=== PATIENT | male | born 1995 | race Caucasian/White ===

== ENCOUNTER 2018-12-21 12:59 | Inpatient (IN) | payer BC, OTHER ==
[~2018-12-21] VITALS: Ht 172.7 cm; Wt 86.4 kg
[2018-12-21 14:14] LABS: BASO % 0.5 % (0.0-1.0); EOS # 0.2 10^3/uL (0.0-0.50); EOS % 3.1 % (0.0-3.0); HEMATOCRIT 46.3 % (42.0-52.0); HEMOGLOBIN 15.9 g/dl (13.5-17.5); LYMPH # 1.8 10^3/uL (1.5-6.5); LYMPH % 23.8 % (24.0-44.0); MEAN CORPUSCULAR HEMOGLOBIN 31.5 pg (27.0-33.0); MEAN CORPUSCULAR HGB CONC 34.3 g/dl (32.0-36.5); MEAN CORPUSCULAR VOLUME 91.9 fl (80.0-96.0); MONO # 0.7 10^3/uL (0.0-0.8); MONO % 8.9 % (0.0-5.0); NEUTROPHILS # 4.7 10^3/uL (1.8-7.7); NEUTROPHILS % 63.3 % (36.0-66.0); PLATELET COUNT, AUTOMATED 264 10^3/uL (150-450); RED BLOOD COUNT 5.04 10^6/uL (4.30-6.10); WHITE BLOOD COUNT 7.4 10^3/uL (4.0-10.0)
[2018-12-21 14:32] LABS: ERYTHROCYTE SEDIMENTATION RATE 44 mm/hr (0-15)
[2018-12-21 14:42] LABS: ALBUMIN 4.3 GM/DL (3.2-5.2); ALT/SGPT 31 U/L (12-78); BILIRUBIN,DIRECT < 0.1 MG/DL (0.0-0.2); BILIRUBIN,TOTAL 0.3 MG/DL (0.2-1.0); BLOOD UREA NITROGEN 16 MG/DL (7-18); C REACTIVE PROTEIN QUANTITATIV 2.73 MG/DL (0.00-0.30); CALCIUM LEVEL 9.6 MG/DL (8.5-10.1); CARBON DIOXIDE LEVEL 27 MEQ/L (21-32); CHLORIDE LEVEL 105 MEQ/L (98-107); CREATININE FOR GFR 1.03 MG/DL (0.70-1.30); GLOMERULAR FILTRATION RATE > 60.0 (>60); GLUCOSE, FASTING 88 MG/DL (70-100); POTASSIUM SERUM 4.1 MEQ/L (3.5-5.1); SODIUM LEVEL 140 MEQ/L (136-145)
--- NOTE | 2018-12-21 17:17 | REP ---
Clinical: Pain and swelling. Technique: AP, lateral, bilateral oblique views of the left ankle. Findings: No acute fracture or dislocation. Skeletal structures and joint spaces appear normal. Lateral view demonstrates anterior swelling over the distal tibial metaphysis uncertain etiology or significance. Impression: Mild anterior swelling. No acute fracture or dislocation. Electronically Signed by Juan Mas MD 12/21/2018 05:08 P
[2018-12-21] MEDS ORDERED: CEPH500C PO (17:54)
[2018-12-21] MEDS ORDERED: IBUP80TA PO (17:54)
[2018-12-21] MEDS ORDERED: PROHANCE 279.3MG/ML 5ML VIAL (A9576) As Ordered ONE (21:39)
[2018-12-21] MEDS ORDERED: PROHANCE 279.3MG/ML 15ML VIAL (A9576) As Ordered ONE (21:40)
--- NOTE | 2018-12-21 22:24 | REPVR ---
EXAM: MR Left Lower Extremity Without and With Contrast, Ankle EXAM DATE/TIME: 12/21/2018 9:39 PM CLINICAL HISTORY: 23 years old, male; Signs and symptoms; Cellulitis and limp and swelling, leg or foot; Ankle; Left; Patient HX: PT recently admitted for septic arthritis/cellulitis; Additional info: Swelling/? Abscess vs septic ankle TECHNIQUE: Imaging protocol: MR of the Left ankle without and with intravenous contrast. Contrast material: PROHANCE; Contrast volume: 17 ml; Contrast route: IV; COMPARISON: CR Ankle, complete LEFT 12/21/2018 5:04 PM FINDINGS: There is no evidence of acute fracture or dislocation. Alignment is anatomic. Bone marrow signal is normal. The articular cartilage is grossly intact. There is moderate anterior subcutaneous edema and enhancement with overlying skin thickening, compatible with cellulitis. There is an approximately 8 x 5 x 5 mm focus of loculated, peripherally enhancing fluid along the lateral aspect of the anterior tibialis tendon at the level of the distal tibia. There is marked localized thickening of the adjacent anterior tibialis tendon. The visualized portions of the medial and lateral ankle tendons are intact. There is a small amount of loculated fluid in the flexor hallucis longus tendon sheath. The plantar fascia and Achilles tendon are also intact. There is normal signal in the sinus Tarsi. The anterior and posterior talofibular ligaments are intact. The calcaneofibular ligament is also intact. The visualized portions of the spring ligament and deltoid ligament complex are intact. IMPRESSION: 1. Cellulitis along the anterior aspect of the ankle with a small amount of loculated phlegmonous change versus developing abscess along the lateral aspect of the anterior tibialis tendon, as described above. 2. Mild anterior tibialis tendinopathy, likely reactive. Electronically signed by: Omi Dacosta On 12/21/2018 22:24:02 PM
[2018-12-22] VITALS (11 sets, daily range): BP systolic 114–146; BP diastolic 58–87
[2018-12-22] MEDS ORDERED: LR 1,000 ML IV SCH (01:30)
[2018-12-22] MEDS ORDERED: MORPHINE 4 MG/ML 1ML VIAL/SYRINGE (J2270) IV PRN ×2 (01:30→10:45)
[2018-12-22] MEDS: ACETAMINOPHEN 500 MG TAB PO SCH ×3 (01:49→17:59)
[2018-12-22] MEDS ORDERED: dexameTHASONE 4 MG/ML 1ML VIAL (J1100) As Ordered ONE (07:15)
[2018-12-22] MEDS ORDERED: LIDOCAINE 2% INJ 100 MG/5 ML SDV (FOR ANES.) As Ordered ONE (07:15)
[2018-12-22] MEDS ORDERED: PROPOFOL 200 MG/20 ML VIAL As Ordered ONE (07:15)
[2018-12-22] MEDS ORDERED: ONDANSETRON 4MG/2ML VIAL (J2405) As Ordered ONE ×2 (07:15→10:35)
[2018-12-22] MEDS ORDERED: fentaNYL 100 MCG/2 ML INJECTION (J3010) As Ordered ONE ×4 (07:16→10:35)
[2018-12-22] MEDS ORDERED: MIDAZOLAM INJ 2 MG/2 ML VIAL (J2250) As Ordered ONE (07:16)
[2018-12-22 07:36] LABS: HEMATOCRIT 43.6 % (42.0-52.0); HEMOGLOBIN 14.6 g/dl (13.5-17.5); MEAN CORPUSCULAR HEMOGLOBIN 31.6 pg (27.0-33.0); MEAN CORPUSCULAR HGB CONC 33.5 g/dl (32.0-36.5); MEAN CORPUSCULAR VOLUME 94.4 fl (80.0-96.0); PLATELET COUNT, AUTOMATED 265 10^3/uL (150-450); RED BLOOD COUNT 4.62 10^6/uL (4.30-6.10)
[2018-12-22 07:54] LABS: PROTHROMBIN TIME 13.3 SECONDS (12.1-14.4)
[2018-12-22] MEDS ORDERED: VANCOMYCIN 1000 MG/20 ML VIAL (J3370) As Ordered ONE (08:01)
[2018-12-22] MEDS ORDERED: KETOROLAC 60 MG/2 ML VIAL (J1885) As Ordered ONE (08:43)
[2018-12-22] MEDS: LR 1,000 ML IV SCH ×4 (10:12→21:00)
--- NOTE | 2018-12-22 10:32 | CR ---
DATE OF CONSULTATION: 12/22/2018 CHIEF COMPLAINT: Left ankle pain. HISTORY OF PRESENT ILLNESS: Rigo Bae is a 23-year-old male who has had difficulty with swelling and erythema over the anterior aspect of his ankle. He was recently admitted to [facility], where he was given intravenous (IV) antibiotics and discharged on Keflex for a presumed cellulitis. He did have an ankle aspiration done while at [facility], and this was a dry tap. The patient was feeling better after the IV antibiotics, but over the last couple days, his swelling and erythema has returned. He is status post repair of a tibialis anterior tendon injury from a chainsaw approximately 10 years ago. There was an issue with infection after the initial surgery, which required a repeat trip to the operating room (OR). However, he has not had problems with infection until recently. PAST MEDICAL HISTORY: None. HOME MEDICATIONS: None. PAST SURGICAL HISTORY: As per history of present illness (HPI). ALLERGIES: HYDROCODONE. PHYSICAL EXAMINATION: Vital signs: Temperature 98.1, heart rate 88, respiratory rate 18, blood pressure 146/87, oxygen (O2) 995 on room air. General: Well appearing, alert and oriented times three. Chest: Lungs clear to auscultation bilaterally. Cardiovascular: Regular rate and rhythm. Abdomen: Soft, nontender. Extremities: In the left lower extremity, there is swelling and erythema and tenderness anteriorly over the patient's prior surgical scar. This is in the region of the tibialis anterior tendon. The patient is able to range his ankle without significant pain. He can weightbear. Pain again is all primarily in the more superficial region of the anterior ankle. Intact dorsiflexion, plantar flexion, inversion, eversion. Intact extensor hallucis longus (EHL) and flexor hallucis longus (FHL). Normal sensation to light touch in the superficial peroneal, deep peroneal, tibial distribution. The foot is warm and well perfused. LABORATORIES: Sodium 140, potassium 4.1, creatinine 1.03, CRP 2.73 yesterday and down to 1.85 today. INR 1. White blood count 7.4 yesterday and 6 today. Erythrocyte sedimentation rate (ESR) is 44. IMAGING: X-rays of the left ankle are reviewed. No fracture, dislocation, or other obvious pathology. MRI of the ankle is also reviewed. There is an abscess or developing abscess coursing along the tibialis anterior tendon in the region of the tibial talar joint extending proximally. There is no effusion of the tibial talar joint. IMPRESSION: Infection of the left tibialis anterior tendon. PLAN: The patient will go the OR for incision and drainage (I and D) given the abscess and recurrent infection. We will consult infectious disease after cultures have been obtained. Will start the patient on vancomycin. Informed consent was obtained.
[2018-12-22] MEDS: fentaNYL 100 MCG/2 ML INJECTION (J3010) IV PRN ×4 (10:35→10:50)
[2018-12-22] MEDS ORDERED: METOCLOPRAMIDE INJ 10MG/2ML VIAL (J2765) IV PRN (10:45)
[2018-12-22] MEDS ORDERED: PROMETHAZINE INJ 25 MG/ML VIAL (J2550) IV PRN (10:45)
[2018-12-22] MEDS ORDERED: FLEET ENEMA PR PRN (10:45)
[2018-12-22] MEDS ORDERED: ACETAMINOPHEN TAB 650MG DOSE (2X325MG) PO PRN (10:45)
[2018-12-22] MEDS ORDERED: oxyCODONE 5MG TAB PO PRN ×3 (10:45)
[2018-12-22] MEDS ORDERED: oxyCODONE 5MG TAB As Ordered ONE (10:46)
[2018-12-22] MEDS ORDERED: ONDANSETRON 4MG/2ML VIAL (J2405) IV PRN (11:00)
[2018-12-22] MEDS: PIPERACILLIN/TAZOBACTAM SOD 3.375 GM in D5W MINI-BAG PLUS 50 ML IV SCH ×3 (12:05→23:56)
--- NOTE | 2018-12-22 12:34 | RO ---
DATE OF PROCEDURE: 12/22/2018 PREPROCEDURE DIAGNOSIS: Left ankle infection. POSTPROCEDURE DIAGNOSIS: Left soft tissue infection in the region of the tibialis anterior tendon. OPERATIVE PROCEDURE: Irrigation and debridement left ankle. SURGEON: Debbie Dorman MD REGIONAL OPERATIONS DIRECTOR: None ESTIMATED BLOOD LOSS: 50 mL COMPLICATIONS: None ANESTHESIA: General endotracheal anesthesia. SPECIMENS: Six cultures and two tissue samples. CONDITION: Stable to recovery. INDICATION: Rigo Bae is a 23-year-old male who has had difficulty with soft tissue infection from a prior tibialis anterior tendon repair approximately 10 years ago. He presents with cellulitis and possible phlegmon or abscess on MRI. Risks and benefits of surgery were discussed with the patient in detail and he was brought to the operating room for I and D. Informed consent was obtained. DESCRIPTION OF PROCEDURE: The patient was met in the preoperative holding area where the left lower extremity was marked at the correct operative site. She was taken to the operating room and placed in the supine position on the operating room table. Bony prominences were well padded. He underwent general anesthesia without difficulty. Antibiotics were held prior to incision. A well-padded tourniquet was placed on the left upper thigh. A bump was placed under the left hip. Left lower extremity was prepped and draped in the normal sterile fashion. An official time-out was held where the correct patient, operative side and operative procedure were verified. Following this, patient's incision was made using the prior scar. This essentially started medially, proximally and curved distally to the lateral aspect of the ankle. This was a prior chainsaw injury. There was a significant scar which went directly down to the tibialis anterior tendon. There was a moderate amount of edema in the tissues. Once down to the tibialis anterior tendon, there was a large area of tissue just lateral to the tendon which appeared to correspond with patient's MRI. There was no gross purulence, however, this was poor looking tissue and was all debrided. The tendon was debrided of scar and again any poor looking tissue. There was a significant amount of FiberWire in this area. All of the visible FiberWire was excised. The tendon remained intact. There was significant tendinosis of the tendon itself. It did have good excursion by the time I was done with the debridement. There was no visible sinus tract to the ankle joint itself and thus the ankle joint was left alone. 9 liters of normal saline was then used for irrigation after thorough debridement had been done. I also sent one tissue sample to pathology, one to two samples for culture and gram stain and also the FiberWire for culture and gram stain. Three aerobic and three anaerobic cultures were also sent. Vancomycin 2 grams IV was started after all cultures had been sent. Following the thorough irrigation and debridement the drain was placed. Subcutaneous tissues were closed using #3-0 Monocryl and skin was closed using #3-0 nylon. A soft dressing was applied. The patient was extubated and transferred to the recovery room in stable condition. PLAN: The patient will be weightbearing as tolerated in the left lower extremity using a boot. I will start him on vancomycin, Zosyn and pending recommendations from infectious disease consult and culture results. We will likely remove his sutures in the 2 to 3 week period. Once his sutures are removed, he can discontinue the boot. He should be coming out of the boot to work on range of motion as long as there are no issues with his wound healing.
--- NOTE | 2018-12-22 13:26 | PHACANCOPD ---
PHARMACY VANCOMYCIN DOSING Pt Demographics Demographics Patient Age:23 , Weight:86.360 , Gender: male Adjusted Body Weight Date: 12/22/18, Adjusted Body Weight: Kg Events Past 24 Hours Events Past 24 Hours: YES: Pending Diagnostics Vancomycin Vancomycin indication: CELLULITIS/ABSCESS Vancomycin Target Ranges: 10-20 mcg/ml Vancomycin Load Y/N: No Load Dose Date Time Vancomycin Load Dose: Date: Time: Vancomycin Dose Date: 12/22/18. Current Vancomycin Dose: [1g IV Q8H] Intermittent Dosing?: No Labs Labs Item Value Date Time White Blood Count 6.0 10^3/uL 12/22/18 0718 White Blood Count 7.4 10^3/uL 12/21/18 1354 Erythrocyte Sedimentation Rate 44 mm/hr H 12/21/18 1354 Creatinine 1.03 MG/DL 12/21/18 1354 Blood Urea Nitrogen 16 MG/DL 12/21/18 1354 Lactic Acid Level 1.8 MMOL/L 12/21/18 1354 C-Reactive Protein, Quantitative 2.73 MG/DL H 12/21/18 1354 C-Reactive Protein, Quantitative 1.85 MG/DL H 12/22/18 0718 Micro Microbiology 12/21/18 Blood Culture, Received Pending 12/21/18 Blood Culture, Received Pending 12/22/18 Anaerobic Culture, Received Pending 12/22/18 Gram Stain - Final, Resulted 12/22/18 Bacterial Culture, Resulted Pending 12/22/18 Gram Stain - Final, Resulted 12/22/18 Surgical Biopsy Culture, Resulted Pending 12/22/18 Anaerobic Culture, Resulted Pending 12/22/18 Gram Stain - Final, Resulted 12/22/18 Abscess Culture, Resulted Pending 12/22/18 Anaerobic Culture, Resulted Pending Creatinine Clearance Date:12/22/18. Est Creatinine Clearance: [~>100ml/min]. Pending Labs Vancomycin trough level scheduled 12/23/18 @1600, prior to the 5th dose Assessment and Plan Maintaining Current Dose?: Yes Reason for dose change: No Dose Change Pharmacist Note Pharmacist Note Date: 12/22/18. Pharmacist note: Day #1 empiric vancomycin therapy initiated at a maintenance regimen of 1g IV Q8H for the treatment of cellulitis/abscess in the region of the left tibialis anterior tendon - aiming for a goal trough of 10- 20mcg/ml. The patient was recently discharged from [facility], at which time he was being treated with IV vancomycin and IV zosyn. The patient was discharged home on oral keflex which he started on 12/18/18, and he has progressively worsened since. The patient is s/p I+D of the wound today with wound and blood cultures pending. WBC, LA, and temp are currently WNL. ESR and CRP are elevated. The patient has no known PMH of MRSA. A vancomycin trough level has been scheduled to be drawn tomorrow, 12/23/18, at 1600 - prior to the 5th dose. We will continue to monitor and make dose adjustments if needed. HEIKE NUNO PHARMACY December 22, 2018 13:26
[2018-12-22] MEDS: VANCOMYCIN HCL 1,000 MG, VIAL MATE ADAPTER 1 EACH in D5W 250 ML IV SCH (17:20)
[2018-12-22] MEDS: IBUPROFEN 600 MG TAB PO SCH (18:00)
[2018-12-22] MEDS: ONDANSETRON 4MG/2ML VIAL (J2405) IV PRN (18:38)
[2018-12-23] VITALS: BP 126/59
[2018-12-23] MEDS: VANCOMYCIN HCL 1,000 MG, VIAL MATE ADAPTER 1 EACH in D5W 250 ML IV SCH ×3 (01:28→17:43)
[2018-12-23] MEDS: ONDANSETRON 4MG/2ML VIAL (J2405) IV PRN ×2 (01:28→23:50)
[2018-12-23] MEDS: ACETAMINOPHEN 500 MG TAB PO SCH ×3 (01:29→17:43)
[2018-12-23] MEDS: IBUPROFEN 600 MG TAB PO SCH ×3 (01:30→17:44)
[2018-12-23] MEDS: PIPERACILLIN/TAZOBACTAM SOD 3.375 GM in D5W MINI-BAG PLUS 50 ML IV SCH ×4 (05:51→23:50)
[2018-12-23 06:00] VITALS: BP 118/70
[2018-12-23] MEDS: LR 1,000 ML IV SCH (06:09)
[2018-12-23 06:46] LABS: HEMATOCRIT 39.3 % (42.0-52.0); HEMOGLOBIN 13.1 g/dl (13.5-17.5); MEAN CORPUSCULAR HEMOGLOBIN 31.3 pg (27.0-33.0); MEAN CORPUSCULAR HGB CONC 33.3 g/dl (32.0-36.5); MEAN CORPUSCULAR VOLUME 93.8 fl (80.0-96.0); PLATELET COUNT, AUTOMATED 225 10^3/uL (150-450); RED BLOOD COUNT 4.19 10^6/uL (4.30-6.10); WHITE BLOOD COUNT 9.2 10^3/uL (4.0-10.0)
[2018-12-23 07:08] LABS: BLOOD UREA NITROGEN 12 MG/DL (7-18); C REACTIVE PROTEIN QUANTITATIV 1.12 MG/DL (0.00-0.30); CALCIUM LEVEL 8.5 MG/DL (8.5-10.1); CARBON DIOXIDE LEVEL 27 MEQ/L (21-32); CHLORIDE LEVEL 106 MEQ/L (98-107); CREATININE FOR GFR 1.03 MG/DL (0.70-1.30); GLOMERULAR FILTRATION RATE > 60.0 (>60); GLUCOSE, FASTING 107 MG/DL (70-100); POTASSIUM SERUM 3.9 MEQ/L (3.5-5.1); SODIUM LEVEL 139 MEQ/L (136-145)
[2018-12-23 08:00] VITALS: BP 118/63
[2018-12-23] MEDS: ASPIRIN 81 MG CHEW TABLET PO SCH ×2 (08:36→21:02)
[2018-12-23 12:00] VITALS: BP 129/62
[2018-12-23 16:00] VITALS: BP 123/69
[2018-12-23 20:00] VITALS: BP 129/70
[2018-12-24] VITALS: BP 118/66
[2018-12-24] MEDS: VANCOMYCIN HCL 1,000 MG, VIAL MATE ADAPTER 1 EACH in D5W 250 ML IV SCH ×2 (01:17→08:59)
[2018-12-24] MEDS: IBUPROFEN 600 MG TAB PO SCH ×2 (01:18→09:15)
[2018-12-24] MEDS: ACETAMINOPHEN 500 MG TAB PO SCH ×2 (01:18→09:16)
[2018-12-24 04:00] VITALS: BP 111/66
[2018-12-24] MEDS: PIPERACILLIN/TAZOBACTAM SOD 3.375 GM in D5W MINI-BAG PLUS 50 ML IV SCH ×2 (05:41→10:31)
[2018-12-24] MEDS ORDERED: OXYC-517 PO (07:46)
[2018-12-24 08:00] VITALS: BP 134/60
[2018-12-24] MEDS: ASPIRIN 81 MG CHEW TABLET PO SCH (08:58)
[2018-12-24] MEDS: ONDANSETRON 4MG/2ML VIAL (J2405) IV PRN (09:16)
[2018-12-24 09:24] LABS: HEMATOCRIT 42.7 % (42.0-52.0); HEMOGLOBIN 14.1 g/dl (13.5-17.5); MEAN CORPUSCULAR HEMOGLOBIN 31.4 pg (27.0-33.0); MEAN CORPUSCULAR VOLUME 95.1 fl (80.0-96.0); PLATELET COUNT, AUTOMATED 253 10^3/uL (150-450); RED BLOOD COUNT 4.49 10^6/uL (4.30-6.10); WHITE BLOOD COUNT 6.1 10^3/uL (4.0-10.0)
[2018-12-24 09:45] LABS: BLOOD UREA NITROGEN 14 MG/DL (7-18); C REACTIVE PROTEIN QUANTITATIV 0.68 MG/DL (0.00-0.30); CARBON DIOXIDE LEVEL 31 MEQ/L (21-32); CHLORIDE LEVEL 104 MEQ/L (98-107); CREATININE FOR GFR 1.09 MG/DL (0.70-1.30); GLOMERULAR FILTRATION RATE > 60.0 (>60); GLUCOSE, FASTING 93 MG/DL (70-100); POTASSIUM SERUM 4.5 MEQ/L (3.5-5.1); SODIUM LEVEL 139 MEQ/L (136-145)
[2018-12-24] MEDS ORDERED: BACT800T5 PO (11:56)
--- NOTE | 2018-12-24 14:00 | CR ---
INFECTIOUS DISEASE CONSULT DATE OF CONSULTATION: 12/24/2018 CONSULTING PHYSICIAN: Dr. Dorman SERVICE REQUESTED: Infectious disease consult. REASON FOR CONSULTATION: Cellulitis and infected left ankle. HISTORY OF PRESENT ILLNESS: Mr. Bae is a 23-year-old gentleman admitted on 12/21/2018 for an infected left ankle. He states he initially had presented to [facility] last Saturday, December 16, 2018 for swelling and redness of the left foot. There was concern of a bony infection for which he was transferred to [place] for orthopedic services. He states he was admitted for two days in [place] on IV antibiotics and then discharged home on by mouth Keflex. He states he was home for about two days, taking the antibiotics of prescribed. Although his foot improved, his erythema and swelling now started at his left ankle, for which he then presented to our hospital. He states on his left ankle he had damage to the anterior tibial tendon over 10 years ago and has had three prior surgeries for this: one for the initial tendon repair, second surgery for infection of this tendon, and then a third surgery for scar revision of the tendon. All these surgeries reportedly were about 10 years ago. Since he has been admitted, he has been on vancomycin and Zosyn since 12/22/2018, afebrile and without any leukocytosis. Imaging revealed cellulitis of the anterior left ankle along with phlegmon versus abscess along the anterior tibialis tendon. He was taken to the operating room by orthopedist, Dr. Dorman, on 12/22 for irrigation and debridement of the left ankle. Per the patient and the operative report, his sutures at this tendon from his previous surgery appeared to be infected and were excised without any new sutures put in place as the tendon remained intact. Infectious disease has been consulted for antibiotics management for his cellulitis and abscess of the left ankle. He was examined at bedside without any new complaints. He denies any damage or injury to the foot or ankle. States he has not had any fevers, chills, nausea, vomiting or leg pain since hospitalized. He states his erythema and edema of the left ankle have much improved. He denies ever having any purulent drainage from his foot or the ankle and denies having any previous drainage or surgical intervention at [place] or in [place] prior to this hospitalization. PAST MEDICAL HISTORY: None. PAST SURGICAL HISTORY: Left talofibular repair with three surgeries at this site as well as left shoulder labrum repair 3-4 years ago and a right hand carpal tunnel and cubital tunnel repair. FAMILY HISTORY: Mother had diverticulitis. Father had a neck tumor excised. SOCIAL HISTORY: Denies ever using tobacco. Drinks socially. Previously was in the [employer]. Currently works in [employer]. ALLERGIES: 1. HYDROCODONE from Vicodin causes him hives. CURRENT INPATIENT MEDICATIONS: - Zofran IV - Tylenol by mouth - morphine IV - Roxicodone by mouth - fleet enema - vancomycin and Zosyn day 3, started on 12/24/2018. - Advil by mouth - aspirin by mouth HOME MEDICATIONS: Ibuprofen as needed REVIEW OF SYSTEMS: Negative, as per HPI. PHYSICAL EXAMINATION: VITALS: Temperature 97.8, pulse 67, respirations 18, blood pressure 134/60, mean arterial pressure (MAP) of 84, pulse oximetry 98% on room air. GENERAL: Resting comfortably in bed in no acute distress. Alert and oriented times three. Fully conversant. HEENT: Normocephalic, atraumatic. Moist mucous membranes. No oral lesions or ulcerations. NECK: Supple without any adenopathy. CARDIAC: Regular rate and rhythm without any murmurs. LUNGS: Clear to auscultation bilaterally without any wheezing, rhonchi or rales. ABDOMEN: Soft, nontender, nondistended. Positive bowel sounds. EXTREMITIES: 2+ pedal pulses bilaterally. No peripheral edema, clubbing or cyanosis. Skin is warm, intact. Well perfused. Left ankle is wrapped in dressing. This was unwrapped. Sutures are in place and he has a well healing incision without any drainage. Foot was re-wrapped in dressing afterwards. 2+ radial and dorsalis pedis pulses bilaterally. NEURO: No focal deficits. Motor and sensation intact throughout. LABS: WBC 6.1, hemoglobin and hematocrit 14/42, platelets 253. BMP essentially normal. CRP trending down from 2.73 on admission to 0.68 today. Microbiology: Blood culture negative after 48 hours. Left ankle cultures grew Staphylococcus Aureus as a preliminary result. Sensitivities and the type of Staphylococcus are currently pending. Third culture of the left ankle is also growing anaerobic bacteria preliminarily. Pathology of soft tissue left ankle excision from 12/22/2018 in the OR reveals fragments of soft tissue and skeletal muscle with acute inflammation and necrosis. IMAGING: Left ankle x-ray on 12/21/2018 shows mild anterior swelling, no acute fracture or dislocation. Ankle MRI shows cellulitis along the anterior aspect of the ankle with small amount of loculated phlegmonous change versus developing aspect along the lateral aspect of the anterior tibialis tendon, mild anterior tibialis tendinopathy likely reactive. ASSESSMENT/PLAN: 1. Cellulitis of the left ankle with infection and abscess/phlegmon of the lateral aspect of the anterior tibial tendon. The patient is doing well post OR irrigation and debridement on 12/22/2018. He has remained afebrile without any white count and his CRP is trending downward to 0.68 today. His left ankle appears to be healing well. He denies ever having pus drainage at the site. Considering that he failed Keflex, it is possible that he has Methicillin-resistant Staphylococcus aureus (MRSA) infection at the site, however, currently our ankle cultures are only preliminary results, reading as Staphylococcus Aureus, unable to clarify if this is methicillin-sensitive Staphylococcus aureus (MSSA) versus MRSA. No sensitivities are currently available. Given his clinical picture, we will treat him as if this is MRSA. He has received three days of vancomycin and Zosyn inpatient, will send him home on p.o. Bactrim for a total of 14 days of MRSA coverage and he is to follow-up outpatient in Dr. Toney's office in 7-10 days. Pain control as per orthopedics. He has been advised to call if there are any issues. Plan discussed with pt and primary team. Thank you for this consult. PETAR
== END 2018-12-24 13:18 | disposition home or self-care (01) | DRG 711 ==
LOC: M ED 12:59 → M ED INP 17:27 → M SDC 18:18 → M PED 12-22 00:54 → OBSVTOIN 12-22 10:00 → INTOOBSV 12-22 18:27 → OBSVTOIN 12-22 18:27
PROVIDERS: ADMIT Orthopaedic Surgery; ATTEND Orthopaedic Surgery
PROC: 0LBT0ZZ Excision of Left Ankle Tendon, Open Approach (ICD-10-PCS; principal; 2018-12-22 08:00)
DX: T81.49XA Infection following a procedure, other surgical site, initial encounter (principal); L03.116 Cellulitis of left lower limb; Z79.899 Other long term (current) drug therapy; Z88.5 Allergy status to narcotic agent; Z79.82 Long term (current) use of aspirin; Y83.8 Other surgical procedures as the cause of abnormal reaction of the patient, or of later complication, without mention of misadventure at the time of the procedure

== ENCOUNTER → 2019-01-01 | Outpatient (REF) | payer OTHER ==
[~2019-01-01] MED LIST: BACT800T5 PO; CEPH500C PO; IBUP80TA PO; OXYC-517 PO
[2019-01-01 13:47] LABS: BASO # 0.1 10^3/uL (0.0-0.2); BASO % 1.3 % (0.0-1.0); EOS # 0.2 10^3/uL (0.0-0.50); HEMATOCRIT 44.9 % (42.0-52.0); LYMPH # 1.2 10^3/uL (1.5-6.5); LYMPH % 20.5 % (24.0-44.0); MEAN CORPUSCULAR HEMOGLOBIN 31.6 pg (27.0-33.0); MEAN CORPUSCULAR HGB CONC 33.4 g/dl (32.0-36.5); MEAN CORPUSCULAR VOLUME 94.5 fl (80.0-96.0); MONO # 0.7 10^3/uL (0.0-0.8); MONO % 11.6 % (0.0-5.0); NEUTROPHILS # 3.8 10^3/uL (1.8-7.7); NEUTROPHILS % 62.1 % (36.0-66.0); PLATELET COUNT, AUTOMATED 268 10^3/uL (150-450); RED BLOOD COUNT 4.75 10^6/uL (4.30-6.10)
[2019-01-01 13:51] LABS: ALBUMIN 4.5 GM/DL (3.2-5.2); ALT/SGPT 34 U/L (12-78); BILIRUBIN,TOTAL 0.3 MG/DL (0.2-1.0); BLOOD UREA NITROGEN 18 MG/DL (7-18); C REACTIVE PROTEIN QUANTITATIV 0.39 MG/DL (0.00-0.30); CALCIUM LEVEL 9.6 MG/DL (8.5-10.1); CARBON DIOXIDE LEVEL 31 MEQ/L (21-32); CHLORIDE LEVEL 102 MEQ/L (98-107); CREATININE FOR GFR 1.11 MG/DL (0.70-1.30); GLOMERULAR FILTRATION RATE > 60.0 (>60); GLUCOSE, FASTING 79 MG/DL (70-100); POTASSIUM SERUM 4.4 MEQ/L (3.5-5.1); SODIUM LEVEL 139 MEQ/L (136-145); TOTAL PROTEIN 8.1 GM/DL (6.4-8.2)
[2019-01-01 14:15] LABS: ERYTHROCYTE SEDIMENTATION RATE 7 mm/hr (0-15)
== END ==
LOC: M SFHCPLAZ 09:35
PROVIDERS: ATTEND Internal Medicine Infectious Disease
DX: M65.072 Abscess of tendon sheath, left ankle and foot (principal)

== ENCOUNTER → 2020-11-02 | Outpatient (CLI) | payer BC, OTHER ==
--- NOTE | 2020-11-03 03:50 | REP ---
INDICATION: CONTUSION LEFT MIDDLE AND RING FINGER COMPARISON: None. TECHNIQUE: AP, lateral, bilateral oblique views left 3rd and 4th digits. FINDINGS: Subtle soft tissue injury cannot be excluded and evaluation is somewhat limited due to surrounding bandage material. The osseous structures and joint spaces appear intact and without acute fracture. No obvious foreign body or subcutaneous emphysema. IMPRESSION: . No acute fracture or dislocation appreciated. <Electronically signed by Juan Mas > 11/03/20 [id number]
== END ==
LOC: M WUC 11:00
PROVIDERS: ATTEND Physician Assistant
DX: S60.032A Contusion of left middle finger without damage to nail, initial encounter (principal); S60.042A Contusion of left ring finger without damage to nail, initial encounter